=== PATIENT | male | born 1960 | race Caucasian/White ===

== ENCOUNTER 2016-08-04 03:13 | Emergency (ER) | payer OTHER ==
[~2016-08-04 03:13] MED LIST: A/B OTIC15 ML; AMO500 PO; APAP/HYDROCODON1 T13 PO; COLACE100 MG PO; COMINH INH; FLO4 PO; GABAPENTIN100 M2 PO; IBU800 M1 PO; LAC PO; LEVAQUIN250 MG PO; LOSARTAN POTASS50 M1 PO; MOT800 PO; NOR10T PO; NOR5 PO; NORCO1 TA1 PO; NORCO1 TA2; NORCO1 TA2 PO; PERCOCET1 TAB PO; PROPRANOLOL HCL40 MG PO; PROVENTIL0.09 MG/A1 IH; PYR100 PO; SPIRIVA18 MC1 INH
[2016-08-04 04:33] LABS: BASOPHIL % 0.5 % (0-2); PLATELET COUNT 284 x10^3mcL (130-400); RED CELL DISTRIBUTION WIDTH 14.6 % (11.5-14.5)
[2016-08-04 04:39] LABS: CARBON DIOXIDE 25.4 mmol/L (21-32); CHLORIDE SERUM 105 mmol/L (98-107); CREATININE SERUM 1.1 mg/dL (0.7-1.3); GFR1 > 60 mL/min; GLUCOSE SERUM 96 mg/dL (74-106); POTASSIUM SERUM 3.3 mmol/L (3.5-5.1); SODIUM SERUM 142 mmol/L (136-145)
[2016-08-04 04:43] LABS: ALBUMIN 4.1 g/dL (3.4-5.0); ALKALINE PHOSPHATASE 115 U/L (46-116); ALT/SGPT 10 U/L (16-63); AMYLASE 38 U/L (25-115); AST/SGOT 1 U/L (15-37); BILIRUBIN TOTAL 0.36 mg/dL (0.20-1.00); LIPASE 107 IU/L (73-393); TOTAL PROTEIN, SERUM 7.4 g/dL (6.4-8.2)
[2016-08-04 05:49] LABS: UA SPECIFIC GRAVITY 1.025 (1.005-1.035); microscopic required? YES; urine erythrocyte 1+ (NEGATIVE)
[2016-08-04 06:04] VITALS: BP 124/90
[2016-08-05] MEDS ORDERED: ADV100/50 (05:18)
[2016-08-05] MEDS ORDERED: ALBUTEROL1.25 MG/3 (05:19)
== END 2016-08-04 06:04 | disposition home or self-care (01) ==
LOC: ED 03:13
PROVIDERS: Emergency Medicine
DX: R10.11 Right upper quadrant pain (principal); R11.10 Vomiting, unspecified; R19.7 Diarrhea, unspecified; J44.1 Chronic obstructive pulmonary disease with (acute) exacerbation; I10 Essential (primary) hypertension; Z88.5 Allergy status to narcotic agent; Z88.8 Allergy status to other drugs, medicaments and biological substances
CPT/HCPCS: J1170; Q0092; Q0162

== ENCOUNTER 2016-08-05 04:06 | Inpatient (IN) | payer MEDICARE, OTHER ==
[~2016-08-05] VITALS: Ht 182.9 cm; Wt 66.7 kg
[2016-08-05 05:18] LABS: CALCIUM 8.2 mg/dL (8.5-10.1); CARBON DIOXIDE 26.9 mmol/L (21-32); CHLORIDE SERUM 108 mmol/L (98-107); CREATININE SERUM 1.1 mg/dL (0.7-1.3); GFR1 > 60 mL/min; GLUCOSE SERUM 103 mg/dL (74-106); POTASSIUM SERUM 3.6 mmol/L (3.5-5.1); SODIUM SERUM 142 mmol/L (136-145)
[2016-08-05] MEDS ORDERED: ADV100/50 (05:18)
[2016-08-05] MEDS ORDERED: ALBUTEROL1.25 MG/3 (05:19)
[2016-08-05 05:23] LABS: ALBUMIN 3.6 g/dL (3.4-5.0); ALKALINE PHOSPHATASE 104 U/L (46-116); ALT/SGPT 15 U/L (16-63); AMYLASE 60 U/L (25-115); AST/SGOT 12 U/L (15-37); BILIRUBIN TOTAL 0.27 mg/dL (0.20-1.00); LIPASE 330 IU/L (73-393); TOTAL PROTEIN, SERUM 6.6 g/dL (6.4-8.2)
[2016-08-05 05:26] LABS: BASOPHIL % 0.4 % (0-2); PLATELET COUNT 250 x10^3mcL (130-400); RED CELL DISTRIBUTION WIDTH 14.2 % (11.5-14.5)
[2016-08-05 06:20] LABS: microscopic required? YES; urine erythrocyte 2+ (NEGATIVE)
[2016-08-05 06:31] VITALS: BP 130/81
[2016-08-05 07:06] LABS: PHOSPHOROUS 3.8 mg/dL (2.5-4.9)
[2016-08-05 07:09] LABS: T3 TOTAL 0.78 ng/mL
[2016-08-05 07:14] LABS: FREE T4 1.1 ng/dL (0.76-1.46); FREE THYROXINE INDEX 2.6 ug/dL (1.4-4.5); T4(THYROXINE) 7.5 ug/dL (4.7-13.3)
[2016-08-05 07:30] VITALS: BP 130/81
[2016-08-05 07:36] LABS: CHOLESTEROL/HDL RATIO 4.8
[2016-08-05 09:19] LABS: AMPHETAMINE QUAL UR NONE DETECTED (NEG <=1000)
[2016-08-05 17:06] VITALS: BP 130/81
[2016-08-05 17:30] VITALS: BP 150/105
[2016-08-05 21:39] VITALS: BP 126/72
[2016-08-06 04:56] VITALS: BP 141/92
[2016-08-06 08:20] VITALS: BP 146/86
[2016-08-06 09:05] VITALS: BP 154/88
[2016-08-06 12:30] VITALS: BP 152/89
[2016-08-06 14:39] LABS: CALCIUM 8.3 mg/dL (8.5-10.1); CARBON DIOXIDE 27.8 mmol/L (21-32); CHLORIDE SERUM 105 mmol/L (98-107); CREATININE SERUM 0.9 mg/dL (0.7-1.3); GFR1 > 60 mL/min; GLUCOSE SERUM 85 mg/dL (74-106); POTASSIUM SERUM 3.7 mmol/L (3.5-5.1); SODIUM SERUM 139 mmol/L (136-145)
[2016-08-06 14:40] LABS: BASOPHIL % 0.9 % (0-2); PLATELET COUNT 199 x10^3mcL (130-400); RED CELL DISTRIBUTION WIDTH 14.5 % (11.5-14.5)
[2016-08-06 20:00] VITALS: BP 129/83
[2016-08-06 21:10] VITALS: Ht 182.9 cm; Wt 66.7 kg
[2016-08-06 21:55] VITALS: BP 129/83
[2016-08-07 06:11] LABS: BASOPHIL % 0.3 % (0-2); PLATELET COUNT 198 x10^3mcL (130-400)
[2016-08-07 06:24] LABS: CALCIUM 8.7 mg/dL (8.5-10.1); CARBON DIOXIDE 23.4 mmol/L (21-32); CHLORIDE SERUM 102 mmol/L (98-107); CREATININE SERUM 0.8 mg/dL (0.7-1.3); GFR1 > 60 mL/min; GLUCOSE SERUM 90 mg/dL (74-106); POTASSIUM SERUM 4.2 mmol/L (3.5-5.1); SODIUM SERUM 136 mmol/L (136-145)
[2016-08-07 06:41] VITALS: BP 124/79
[2016-08-07 09:41] VITALS: BP 133/86
[2016-08-07 13:45] VITALS: BP 133/80
[2016-08-07 17:49] VITALS: BP 113/78
[2016-08-07 21:11] VITALS: BP 120/75
[2016-08-08 05:55] VITALS: BP 130/87
[2016-08-08 06:28] LABS: BASOPHIL % 0.5 % (0-2); PLATELET COUNT 177 x10^3mcL (130-400); RED CELL DISTRIBUTION WIDTH 14.5 % (11.5-14.5)
[2016-08-08 06:57] LABS: CALCIUM 8.1 mg/dL (8.5-10.1); CARBON DIOXIDE 28.4 mmol/L (21-32); CHLORIDE SERUM 107 mmol/L (98-107); GFR1 > 60 mL/min; GLUCOSE SERUM 90 mg/dL (74-106); POTASSIUM SERUM 3.7 mmol/L (3.5-5.1); SODIUM SERUM 141 mmol/L (136-145)
[2016-08-08 08:51] VITALS: BP 135/87
[2016-08-08 17:45] VITALS: BP 132/86
[2016-08-08 21:13] VITALS: BP 137/86
[2016-08-09 05:41] VITALS: BP 143/88
[2016-08-09 06:51] LABS: CARBON DIOXIDE 28.1 mmol/L (21-32); CHLORIDE SERUM 104 mmol/L (98-107); CREATININE SERUM 0.9 mg/dL (0.7-1.3); GFR1 > 60 mL/min; GLUCOSE SERUM 86 mg/dL (74-106); POTASSIUM SERUM 3.8 mmol/L (3.5-5.1); SODIUM SERUM 140 mmol/L (136-145)
[2016-08-09 06:53] LABS: PLATELET COUNT 196 x10^3mcL (130-400); RED CELL DISTRIBUTION WIDTH 13.4 % (11.5-14.5)
[2016-08-09 07:04] LABS: BASOPHIL % 3.7 % (0-2)
[2016-08-09 09:25] VITALS: BP 142/92
[2016-08-09 15:08] VITALS: BP 140/93
[2016-08-09 18:03] VITALS: BP 128/88
[2016-08-09 21:59] VITALS: BP 135/84
[2016-08-10 06:13] LABS: BASOPHIL % 0.3 % (0-2); PLATELET COUNT 208 x10^3mcL (130-400); RED CELL DISTRIBUTION WIDTH 14.4 % (11.5-14.5)
[2016-08-10 06:30] LABS: CALCIUM 8.9 mg/dL (8.5-10.1); CARBON DIOXIDE 26.4 mmol/L (21-32); CHLORIDE SERUM 105 mmol/L (98-107); GFR1 > 60 mL/min; GLUCOSE SERUM 90 mg/dL (74-106); POTASSIUM SERUM 4.1 mmol/L (3.5-5.1); SODIUM SERUM 140 mmol/L (136-145)
[2016-08-10 07:15] VITALS: BP 122/83
[2016-08-10] MEDS ORDERED: APAP/OXYCODONE1 TA4 PO (08:58)
[2016-08-10] MEDS ORDERED: NEU100 PO (08:59)
[2016-08-10] MEDS ORDERED: GAS RELIEF80 MG CH (08:59)
[2016-08-10] MEDS ORDERED: COL100 PO (09:00)
[2016-08-10] MEDS ORDERED: ZOF4 PO (09:00)
[2016-08-10 09:23] VITALS: BP 132/88
[2016-08-10 11:42] VITALS: BP 132/88
== END 2016-08-10 16:33 | disposition home or self-care (01) | DRG 417 ==
LOC: ED 04:06 → DU 05:04 → MU 05:04 → DU 06:16 → MU 08-06 21:03
PROVIDERS: Emergency Medicine; Family Medicine; Surgery; ADMIT Family Medicine
PROC: 0FT44ZZ Resection of Gallbladder, Percutaneous Endoscopic Approach (ICD-10-PCS; principal; 2016-08-06 16:00)
DX: K80.10 Calculus of gallbladder with chronic cholecystitis without obstruction (principal); N17.0 Acute kidney failure with tubular necrosis; I10 Essential (primary) hypertension; J44.9 Chronic obstructive pulmonary disease, unspecified; N40.0 Benign prostatic hyperplasia without lower urinary tract symptoms; D64.9 Anemia, unspecified; E78.5 Hyperlipidemia, unspecified; F17.210 Nicotine dependence, cigarettes, uncomplicated; T30.0 Burn of unspecified body region, unspecified degree; G62.9 Polyneuropathy, unspecified; T79.8XXS Other early complications of trauma, sequela; Z87.442 Personal history of urinary calculi; Z68.20 Body mass index [BMI] 20.0-20.9, adult; X08.8XXS Exposure to other specified smoke, fire and flames, sequela
CPT/HCPCS: 80307; 83880; 84439; 94150; C9113; J0690; J1170; J1200; J2250; J2405; J2704; J2710; J2765; J3010; J3490; J7030; J7120; J7620; J7626; Q0092

== ENCOUNTER 2016-08-15 23:19 | Emergency (ER) | payer MEDICARE, OTHER ==
[~2016-08-15 23:19] MED LIST changes: +ADV100/50; +ALBUTEROL1.25 MG/3; +APAP/OXYCODONE1 TA4 PO; +COL100 PO; +GAS RELIEF80 MG CH; +NEU100 PO; +ZOF4 PO
[2016-08-16 02:21] LABS: BASOPHIL % 0.5 % (0-2); PLATELET COUNT 253 x10^3mcL (130-400)
[2016-08-16 02:26] LABS: RED CELL DISTRIBUTION WIDTH 14.6 % (11.5-14.5)
[2016-08-16 02:30] LABS: CALCIUM 8.7 mg/dL (8.5-10.1); CARBON DIOXIDE 26.8 mmol/L (21-32); CHLORIDE SERUM 109 mmol/L (98-107); GFR1 > 60 mL/min; GLUCOSE SERUM 109 mg/dL (74-106); POTASSIUM SERUM 3.6 mmol/L (3.5-5.1); SODIUM SERUM 145 mmol/L (136-145)
[2016-08-16 02:39] LABS: ALKALINE PHOSPHATASE 188 U/L (46-116); ALT/SGPT 57 U/L (16-63); AMYLASE 49 U/L (25-115); AST/SGOT 24 U/L (15-37); BILIRUBIN TOTAL 0.26 mg/dL (0.20-1.00); LIPASE 157 IU/L (73-393); TOTAL PROTEIN, SERUM 7.3 g/dL (6.4-8.2)
[2016-08-16 04:24] VITALS: BP 123/75
== END 2016-08-16 04:24 | disposition home or self-care (01) ==
LOC: ED 23:19
PROVIDERS: Specialist
DX: R10.84 Generalized abdominal pain (principal); I10 Essential (primary) hypertension; R07.9 Chest pain, unspecified; J44.9 Chronic obstructive pulmonary disease, unspecified; F17.200 Nicotine dependence, unspecified, uncomplicated; Z88.6 Allergy status to analgesic agent; Z88.5 Allergy status to narcotic agent; Z90.49 Acquired absence of other specified parts of digestive tract; Z87.442 Personal history of urinary calculi
CPT/HCPCS: 83880; J1170; J2405; J3010; J7030; J7620

== ENCOUNTER 2016-08-27 22:24 | Emergency (ER) | payer MEDICARE, OTHER ==
[~2016-08-27] VITALS: Ht 182.9 cm; Wt 66.2 kg
[2016-08-28 02:39] VITALS: BP 132/97
[2016-08-28 02:46] LABS: PLATELET COUNT 316 x10^3mcL (130-400); RED CELL DISTRIBUTION WIDTH 13.8 % (11.5-14.5)
[2016-08-28 02:49] LABS: CALCIUM 9.2 mg/dL (8.5-10.1); CHLORIDE SERUM 106 mmol/L (98-107); CREATININE SERUM 0.8 mg/dL (0.7-1.3); GFR1 > 60 mL/min; GLUCOSE SERUM 102 mg/dL (74-106); POTASSIUM SERUM 3.8 mmol/L (3.5-5.1); SODIUM SERUM 140 mmol/L (136-145)
[2016-08-28 02:53] LABS: ALBUMIN 3.9 g/dL (3.4-5.0); ALKALINE PHOSPHATASE 194 U/L (46-116); ALT/SGPT 60 U/L (16-63); AMYLASE 70 U/L (25-115); AST/SGOT 59 U/L (15-37); BILIRUBIN TOTAL 0.25 mg/dL (0.20-1.00); LIPASE 218 IU/L (73-393); TOTAL PROTEIN, SERUM 6.9 g/dL (6.4-8.2)
== END 2016-08-28 02:39 | disposition left against medical advice (07) ==
LOC: ED 22:24
PROVIDERS: Emergency Medicine
DX: R10.32 Left lower quadrant pain (principal); R19.7 Diarrhea, unspecified; R11.10 Vomiting, unspecified; G89.4 Chronic pain syndrome; I10 Essential (primary) hypertension; J44.9 Chronic obstructive pulmonary disease, unspecified; F17.200 Nicotine dependence, unspecified, uncomplicated; Z79.899 Other long term (current) drug therapy; Z90.49 Acquired absence of other specified parts of digestive tract
CPT/HCPCS: 83880; Q0162

== ENCOUNTER 2016-09-07 18:41 | Emergency (ER) | payer OTHER ==
[~2016-09-07] VITALS: Ht 182.9 cm; Wt 64.6 kg
[2016-09-07 20:02] VITALS: BP 142/99
== END 2016-09-07 20:02 | disposition left against medical advice (07) ==
LOC: ED 18:41
DX: R10.9 Unspecified abdominal pain (principal); M54.9 Dorsalgia, unspecified; I10 Essential (primary) hypertension; J44.9 Chronic obstructive pulmonary disease, unspecified; Z87.19 Personal history of other diseases of the digestive system; Z79.899 Other long term (current) drug therapy; Z87.442 Personal history of urinary calculi; Z88.5 Allergy status to narcotic agent; Z88.6 Allergy status to analgesic agent
CPT/HCPCS: 83880

== ENCOUNTER 2016-09-08 11:50 | Emergency (ER) | payer OTHER ==
[~2016-09-08] VITALS: Ht 182.9 cm; Wt 64.5 kg
[2016-09-08 13:03] LABS: PLATELET COUNT 280 x10^3mcL (130-400); RED CELL DISTRIBUTION WIDTH 14.4 % (11.5-14.5)
[2016-09-08 13:12] LABS: CALCIUM 9.8 mg/dL (8.5-10.1); CARBON DIOXIDE 22.1 mmol/L (21-32); CHLORIDE SERUM 104 mmol/L (98-107); CREATININE SERUM 1.3 mg/dL (0.7-1.3); GFR1 > 60 mL/min; GLUCOSE SERUM 287 mg/dL (74-106); POTASSIUM SERUM 3.8 mmol/L (3.5-5.1); SODIUM SERUM 137 mmol/L (136-145)
[2016-09-08 13:14] LABS: BASOPHIL % 0 % (0-2)
[2016-09-08 13:18] LABS: ALBUMIN 4.1 g/dL (3.4-5.0); ALKALINE PHOSPHATASE 207 U/L (46-116); ALT/SGPT 63 U/L (16-63); AST/SGOT 35 U/L (15-37); BILIRUBIN TOTAL 0.34 mg/dL (0.20-1.00); LIPASE 90 IU/L (73-393); TOTAL PROTEIN, SERUM 7.5 g/dL (6.4-8.2)
[2016-09-08 13:22] VITALS: BP 124/78
== END 2016-09-08 14:00 | disposition home or self-care (01) ==
LOC: ED 11:50
PROVIDERS: Emergency Medicine
DX: G89.29 Other chronic pain (principal); R10.13 Epigastric pain; I10 Essential (primary) hypertension; F17.200 Nicotine dependence, unspecified, uncomplicated; J44.9 Chronic obstructive pulmonary disease, unspecified; Z90.49 Acquired absence of other specified parts of digestive tract; Z88.5 Allergy status to narcotic agent; Z88.8 Allergy status to other drugs, medicaments and biological substances
CPT/HCPCS: C9113; J7030

== ENCOUNTER 2017-06-02 00:12 | Emergency (ER) | payer OTHER ==
[~2017-06-02] VITALS: Ht 182.9 cm; Wt 74.4 kg
[2017-06-02 00:21] VITALS: Ht 182.9 cm; Wt 74.4 kg
[2017-06-02 03:37] VITALS: BP 122/82
== END 2017-06-02 03:37 | disposition home or self-care (01) ==
LOC: ED 00:12
DX: S13.4XXA Sprain of ligaments of cervical spine, initial encounter (principal); S30.0XXA Contusion of lower back and pelvis, initial encounter; I10 Essential (primary) hypertension; Z88.5 Allergy status to narcotic agent; Z88.8 Allergy status to other drugs, medicaments and biological substances; W01.0XXA Fall on same level from slipping, tripping and stumbling without subsequent striking against object, initial encounter; Y93.89 Activity, other specified; Y99.8 Other external cause status; Y92.89 Other specified places as the place of occurrence of the external cause
CPT/HCPCS: J3010; Q0162

== ENCOUNTER 2017-06-30 14:58 | Emergency (ER) | payer OTHER ==
[~2017-06-30] VITALS: Ht 182.9 cm; Wt 73.9 kg
[2017-06-30 15:10] VITALS: Ht 182.9 cm; Wt 73.9 kg
[2017-06-30 16:17] LABS: microscopic required? YES; urine erythrocyte TRACE (NEGATIVE)
[2017-06-30 16:19] LABS: BASOPHIL % 0.5 % (0-2); PLATELET COUNT 193 x10^3mcL (130-400); RED CELL DISTRIBUTION WIDTH 13.7 % (11.5-14.5)
[2017-06-30 16:27] LABS: CALCIUM 8.9 mg/dL (8.5-10.1); CARBON DIOXIDE 27.1 mmol/L (21-32); CHLORIDE SERUM 105 mmol/L (98-107); CREATININE SERUM 0.9 mg/dL (0.7-1.3); GFR1 > 60 mL/min; GLUCOSE SERUM 88 mg/dL (74-106); POTASSIUM SERUM 4.2 mmol/L (3.5-5.1); SODIUM SERUM 141 mmol/L (136-145)
[2017-06-30 16:31] LABS: ALBUMIN 3.8 g/dL (3.4-5.0); ALKALINE PHOSPHATASE 196 U/L (46-116); ALT/SGPT 23 U/L (16-63); AST/SGOT 25 U/L (15-37); BILIRUBIN TOTAL 0.51 mg/dL (0.20-1.00); LIPASE 157 IU/L (73-393); TOTAL PROTEIN, SERUM 7.2 g/dL (6.4-8.2)
[2017-06-30 17:19] VITALS: BP 136/94
== END 2017-06-30 17:19 | disposition home or self-care (01) ==
LOC: ED 14:58
PROVIDERS: Emergency Medicine
DX: R10.9 Unspecified abdominal pain (principal); R11.10 Vomiting, unspecified; R19.7 Diarrhea, unspecified; I10 Essential (primary) hypertension; Z88.6 Allergy status to analgesic agent; Z88.5 Allergy status to narcotic agent; Z90.49 Acquired absence of other specified parts of digestive tract
CPT/HCPCS: 83880; J2405; J3010; J7030

== ENCOUNTER 2017-08-28 19:50 | Emergency (ER) | payer OTHER ==
[2017-08-28 21:02] LABS: BASOPHIL % 0.2 % (0-2); PLATELET COUNT 205 x10^3mcL (130-400); RED CELL DISTRIBUTION WIDTH 14.4 % (11.5-14.5)
[2017-08-28 21:15] LABS: CALCIUM 8.3 mg/dL (8.5-10.1); CHLORIDE SERUM 100 mmol/L (98-107); GFR1 > 60 mL/min; GLUCOSE SERUM 83 mg/dL (74-106); POTASSIUM SERUM 4.1 mmol/L (3.5-5.1); SODIUM SERUM 137 mmol/L (136-145)
[2017-08-28 21:20] LABS: ALBUMIN 3.6 g/dL (3.4-5.0); ALKALINE PHOSPHATASE 335 U/L (46-116); ALT/SGPT 350 U/L (16-63); AST/SGOT 409 U/L (15-37); BILIRUBIN TOTAL 1.3 mg/dL (0.20-1.00); TOTAL PROTEIN, SERUM 7.1 g/dL (6.4-8.2)
[2017-08-28 23:30] VITALS: BP 110/77
== END 2017-08-28 23:30 | disposition home or self-care (01) ==
LOC: ED 19:50
PROVIDERS: Specialist
DX: J40 Bronchitis, not specified as acute or chronic (principal); J44.1 Chronic obstructive pulmonary disease with (acute) exacerbation; I10 Essential (primary) hypertension; Z88.5 Allergy status to narcotic agent; Z88.8 Allergy status to other drugs, medicaments and biological substances; Z90.49 Acquired absence of other specified parts of digestive tract
CPT/HCPCS: 36415; 83880; J3010; J7613; J7644; Q0092; Q0162

== ENCOUNTER 2017-09-03 18:11 | Inpatient (IN) | payer OTHER ==
[~2017-09-03] VITALS: Ht 182.9 cm; Wt 71.8 kg
[2017-09-03 18:16] VITALS: Ht 182.9 cm; Wt 71.8 kg
[2017-09-03 19:23] LABS: BASOPHIL % 0.3 % (0-2); PLATELET COUNT 246 x10^3mcL (130-400); RED CELL DISTRIBUTION WIDTH 13.2 % (11.5-14.5)
[2017-09-03 19:32] LABS: ALKALINE PHOSPHATASE 220 U/L (46-116); ALT/SGPT 89 U/L (16-63); AST/SGOT 25 U/L (15-37); BILIRUBIN TOTAL 0.41 mg/dL (0.20-1.00); CALCIUM 8.6 mg/dL (8.5-10.1); CARBON DIOXIDE 31.6 mmol/L (21-32); CHLORIDE SERUM 101 mmol/L (98-107); GFR1 > 60 mL/min; GLUCOSE SERUM 114 mg/dL (74-106); SODIUM SERUM 140 mmol/L (136-145)
[2017-09-03 19:36] LABS: ALBUMIN 3.2 g/dL (3.4-5.0)
[2017-09-03 20:10] LABS: MAGNESIUM 1.9 mg/dL (1.8-2.4); PHOSPHOROUS 3.1 mg/dL (2.5-4.9)
[2017-09-03 20:17] LABS: T3 TOTAL 0.94 ng/mL
[2017-09-03 20:18] LABS: FREE T4 1.21 ng/dL (0.76-1.46)
[2017-09-03] MEDS ORDERED: PROPRANOLOL HCL40 MG PO (20:23)
[2017-09-03 20:40] VITALS: BP 141/90
[2017-09-03] MEDS ORDERED: NEURONTIN600 MG PO (21:42)
[2017-09-03] MEDS ORDERED: GABAPENTIN600 M1 PO (21:42)
[2017-09-03 22:23] LABS: POTASSIUM SERUM 2.9 mmol/L (3.5-5.1)
[2017-09-03 22:30] VITALS: BP 141/91
[2017-09-03 23:05] LABS: UA SPECIFIC GRAVITY 1.025 (1.005-1.035); microscopic required? YES; urine erythrocyte TRACE (NEGATIVE)
[2017-09-03 23:10] LABS: AMPHETAMINE QUAL UR NONE DETECTED (NEG <=1000)
[2017-09-04 03:52] LABS: BASOPHIL % 0.4 % (0-2); PLATELET COUNT 250 x10^3mcL (130-400); RED CELL DISTRIBUTION WIDTH 13.8 % (11.5-14.5)
[2017-09-04 04:02] LABS: CALCIUM 9.5 mg/dL (8.5-10.1); CHLORIDE SERUM 102 mmol/L (98-107); GFR1 > 60 mL/min; GLUCOSE SERUM 159 mg/dL (74-106); MAGNESIUM 1.9 mg/dL (1.8-2.4); PHOSPHOROUS 2.3 mg/dL (2.5-4.9); POTASSIUM SERUM 4.7 mmol/L (3.5-5.1); SODIUM SERUM 136 mmol/L (136-145)
[2017-09-04 05:32] VITALS: BP 142/69
[2017-09-04 10:11] VITALS: BP 146/84
[2017-09-04 14:16] VITALS: BP 137/88
[2017-09-04 17:39] VITALS: BP 123/74
[2017-09-04 21:18] VITALS: BP 154/91
[2017-09-05 06:43] VITALS: BP 156/99
[2017-09-05 07:25] LABS: CALCIUM 8.4 mg/dL (8.5-10.1); CARBON DIOXIDE 27.2 mmol/L (21-32); CHLORIDE SERUM 104 mmol/L (98-107); CREATININE SERUM 0.9 mg/dL (0.7-1.3); GFR1 > 60 mL/min; GLUCOSE SERUM 154 mg/dL (74-106); PHOSPHOROUS 2.8 mg/dL (2.5-4.9); POTASSIUM SERUM 4.3 mmol/L (3.5-5.1); SODIUM SERUM 137 mmol/L (136-145)
[2017-09-05 07:35] LABS: PLATELET COUNT 213 x10^3mcL (130-400); RED CELL DISTRIBUTION WIDTH 13.8 % (11.5-14.5)
[2017-09-05 08:47] VITALS: BP 150/79
[2017-09-05 09:48] VITALS: BP 124/76
[2017-09-05 10:37] LABS: MONOCYTE 2 % (0-7); SEGMENTED NEUTROPHILS 91 % (37-75)
[2017-09-05 10:38] LABS: BAND NEUTROPHIL 2 % (0-10); rbc morphology (normal/abnorm) NORMAL (NORMAL)
[2017-09-05] MEDS ORDERED: AMITRIPTYLINE H25 MG PO (11:22)
[2017-09-05] MEDS ORDERED: NEURONTIN800 MG PO (11:22)
[2017-09-05] MEDS ORDERED: BD LACTINEX1.4 MG PO (11:38)
[2017-09-05] MEDS ORDERED: LEVAQUIN750 MG PO (11:38)
[2017-09-05] MEDS ORDERED: GABAPENTIN600 M1 PO (11:39)
[2017-09-05 11:47] VITALS: BP 124/76
[2017-09-05] MEDS ORDERED: NORCO1 TA2 PO (11:56)
== END 2017-09-05 13:14 | disposition home or self-care (01) | DRG 206 ==
LOC: ED 18:11 → DU 19:43 → MU 09-05 13:13
PROVIDERS: Emergency Medicine; Family Medicine
DX: M94.0 Chondrocostal junction syndrome [Tietze] (principal); J44.1 Chronic obstructive pulmonary disease with (acute) exacerbation; J44.0 Chronic obstructive pulmonary disease with (acute) lower respiratory infection; F11.20 Opioid dependence, uncomplicated; I42.9 Cardiomyopathy, unspecified; K21.9 Gastro-esophageal reflux disease without esophagitis; I10 Essential (primary) hypertension; E78.5 Hyperlipidemia, unspecified; F17.210 Nicotine dependence, cigarettes, uncomplicated; E87.6 Hypokalemia; G62.9 Polyneuropathy, unspecified; J20.9 Acute bronchitis, unspecified; Z88.8 Allergy status to other drugs, medicaments and biological substances; Z88.5 Allergy status to narcotic agent; Z90.49 Acquired absence of other specified parts of digestive tract; Z82.0 Family history of epilepsy and other diseases of the nervous system; Z83.79 Family history of other diseases of the digestive system
CPT/HCPCS: 83880; 84439; 94150; J1956; J2060; J2920; J2930; J3480; J7030; J7613; J7620; J7644; Q0092

== ENCOUNTER 2017-10-23 13:58 | Emergency (ER) | payer OTHER ==
[~2017-10-23] VITALS: Ht 182.9 cm; Wt 69.8 kg
[~2017-10-23 13:58] MED LIST changes: +AMITRIPTYLINE H25 MG PO; +BD LACTINEX1.4 MG PO; +GABAPENTIN600 M1 PO; +LEVAQUIN750 MG PO; +NEURONTIN600 MG PO; +NEURONTIN800 MG PO
[2017-10-23 14:04] VITALS: Ht 182.9 cm; Wt 69.8 kg
[2017-10-23 15:18] VITALS: BP 155/90
== END 2017-10-23 15:18 | disposition home or self-care (01) ==
LOC: ED 13:58
DX: S96.912A Strain of unspecified muscle and tendon at ankle and foot level, left foot, initial encounter (principal); S20.219A Contusion of unspecified front wall of thorax, initial encounter; J44.9 Chronic obstructive pulmonary disease, unspecified; I10 Essential (primary) hypertension; Z88.5 Allergy status to narcotic agent; Z88.6 Allergy status to analgesic agent; Z90.49 Acquired absence of other specified parts of digestive tract; W01.0XXA Fall on same level from slipping, tripping and stumbling without subsequent striking against object, initial encounter; Y93.89 Activity, other specified; Y92.89 Other specified places as the place of occurrence of the external cause; Y99.8 Other external cause status

== ENCOUNTER 2018-01-04 23:14 | Emergency (ER) | payer OTHER ==
[~2018-01-04] VITALS: Ht 182.9 cm; Wt 72.1 kg
[2018-01-04 23:20] VITALS: Ht 182.9 cm; Wt 72.1 kg
[2018-01-05 00:30] LABS: BASOPHIL % 0.5 % (0-2); PLATELET COUNT 215 x10^3mcL (130-400); RED CELL DISTRIBUTION WIDTH 12.8 % (11.5-14.5)
[2018-01-05 00:41] LABS: CARBON DIOXIDE 26.3 mmol/L (21-32); CHLORIDE SERUM 106 mmol/L (98-107); CREATININE SERUM 0.9 mg/dL (0.7-1.3); GFR1 > 60 mL/min; GLUCOSE SERUM 89 mg/dL (74-106); POTASSIUM SERUM 3.4 mmol/L (3.5-5.1); SODIUM SERUM 139 mmol/L (136-145)
[2018-01-05 00:48] LABS: ALBUMIN 3.7 g/dL (3.4-5.0); ALKALINE PHOSPHATASE 171 U/L (46-116); ALT/SGPT 48 U/L (16-63); AST/SGOT 18 U/L (15-37); BILIRUBIN TOTAL 0.3 mg/dL (0.20-1.00); LIPASE 217 IU/L (73-393); TOTAL PROTEIN, SERUM 6.8 g/dL (6.4-8.2)
[2018-01-05 02:29] VITALS: BP 121/89
== END 2018-01-05 02:30 | disposition home or self-care (01) ==
LOC: ED 23:14
PROVIDERS: Emergency Medicine
DX: N23 Unspecified renal colic (principal)
CPT/HCPCS: J2270; J2405; J7030

== ENCOUNTER 2018-02-11 01:36 | Emergency (ER) | payer OTHER ==
[2018-02-11 03:49] VITALS: BP 137/58
== END 2018-02-11 03:49 | disposition home or self-care (01) ==
LOC: ED 01:36
DX: J44.9 Chronic obstructive pulmonary disease, unspecified (principal); F17.210 Nicotine dependence, cigarettes, uncomplicated; I10 Essential (primary) hypertension; Z87.442 Personal history of urinary calculi; Z90.49 Acquired absence of other specified parts of digestive tract; Z88.8 Allergy status to other drugs, medicaments and biological substances; Z98.890 Other specified postprocedural states
CPT/HCPCS: J2270; J7620; Q0092

== ENCOUNTER 2018-08-03 01:10 | Emergency (ER) | payer OTHER ==
[~2018-08-03] VITALS: Ht 182.9 cm; Wt 73.1 kg
[2018-08-03 01:16] VITALS: Ht 182.9 cm; Wt 73.1 kg
[2018-08-03 02:27] VITALS: BP 145/94
== END 2018-08-03 02:27 | disposition home or self-care (01) ==
LOC: ED 01:10
DX: R10.9 Unspecified abdominal pain (principal); J44.9 Chronic obstructive pulmonary disease, unspecified; I10 Essential (primary) hypertension; Z90.49 Acquired absence of other specified parts of digestive tract; Z87.442 Personal history of urinary calculi; Z88.6 Allergy status to analgesic agent
CPT/HCPCS: J2270

== ENCOUNTER 2018-09-22 00:51 | Emergency (ER) | payer OTHER | END 2018-09-22 03:50 | disposition home or self-care (01) | LOC: ED 00:51 ==